=== PATIENT | female | born 1995 | race American Indian/Alaskan Native ===

== ENCOUNTER 2016-05-10 12:06 | Inpatient (IN) | payer MEDICAID ==
[2016-05-10] MEDS ORDERED: BRETHINE IVP PRN ×2 (14:22→16:24)
[2016-05-10] MEDS ORDERED: MINERAL OIL PO PRN (14:22)
[2016-05-10] MEDS ORDERED: POLYCILLIN/NS 2 GM/100 ML 100 ML IV ONE (14:22)
[2016-05-10] MEDS ORDERED: ZOFRAN IV PRN ×2 (14:22→21:27)
[2016-05-10] MEDS ORDERED: XYLOCAINE 2% INFILTRATI ONE (14:22)
[2016-05-10] MEDS ORDERED: ePHEDrine SULFATE IV PRN ×3 (14:22→18:33)
[2016-05-10] MEDS ORDERED: PHENERGAN PO PRN ×2 (14:22→21:27)
[2016-05-10] MEDS ORDERED: BRETHINE SUB-Q PRN ×2 (14:22→16:24)
[2016-05-10 14:45] LABS: Basophils % (Auto) 0.5 % (0.0-1.8); Eosinophils % (Auto) 0.4 % (0.0-4.3); Hematocrit 32.2 % (30.3-42.9); Hemoglobin 10.2 gm/dl (10.1-14.3); Mean Corpuscular HGB Conc 32 % (30-34); Mean Corpuscular Hemoglobin 25 pg (28-32); Mean Corpuscular Volume 78 fl (79-97); Platelet Count 252 K/mm3 (140-440); Red Blood Count 4.11 M/mm3 (3.65-5.03); Red Cell Distribution Width 24.9 % (13.2-15.2); White Blood Count 11.5 K/mm3 (4.5-11.0)
[2016-05-10] MEDS ORDERED: LACTATED RINGERS 1,000 ML IV SCH (15:00)
[2016-05-10] MEDS ORDERED: PITOCin/NS 20 UNIT/1000ML DRIP 1,000 ML IV SCH ×2 (15:00→22:00)
[2016-05-10] MEDS: SUBLIMAZE IV PRN ×2 (15:33→17:28)
--- NOTE | 2016-05-10 16:19 | History and Physical Report ---
History of Present Illness Date of examination: 05/10/16 Date of admission: 05/10/16 14:48 Chief complaint: Painful contractions History of present illness: 21-year-old at 39+ wks in active labor; she is a [facility] patient. care has been unremarkable. From Patient's history, it appears she is GBS negative. 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 denies: gonorrhea, hepatitis B, hepatitis C, herpes, HIV, syphilis, trichomonas Social history: single, full code. denies: smoking, alcohol abuse, prescription drug abuse, IV drug use - Obstetrical History Expected Date of Delivery: 05/16/16 Actual Gestation: 39 Week(s) 1 Day(s) : 1 Para: 0 Medications and Allergies Allergies Allergy/AdvReac Type Severity Reaction Status Date / Time No Known Allergies Allergy Unverified 08/12/15 11:38 Home Medications Medication Instructions Recorded Confirmed Last Taken Type No Known Home Medications [No 08/12/15 08/12/15 Unknown History Reported Home Medications] Active Meds: Active Medications Fentanyl (Sublimaze) 100 mcg IV Q2H PRN PRN Reason: Labor Pain Last Admin: 05/10/16 15:33 Dose: 100 mcg Lactated Ringer's (Lactated Ringers) 1,000 mls @ 125 mls/hr IV DIRECT JOYCE Last Admin: 05/10/16 15:30 Dose: 125 mls/hr Oxytocin/Sodium Chloride (Pitocin/Ns 20 Unit/1000ml Drip) 1,000 mls @ 125 mls/ hr IV DIRECT JOYCE Mineral Oil (Mineral Oil) 30 ml PO QHS PRN PRN Reason: Constipation Ondansetron HCl (Zofran) 4 mg IV Q8H PRN PRN Reason: Nausea And Vomiting Promethazine HCl (Phenergan) 25 mg PO Q6H PRN PRN Reason: Nausea And Vomiting Review of Systems Constitutional: no fever, no chills Cardiovascular: no chest pain, no orthopnea, no edema, no syncope, no lightheadedness, no shortness of breath Respiratory: no hemoptysis, no shortness of breath, no dyspnea on exertion Gastrointestinal: abdominal pain (painful contractions), no nausea, no vomiting , no diarrhea Genitourinary: no vaginal bleeding, no vaginal discharge, no leakage of fluid - Vital Signs Vital signs: Vital Signs Pulse BP Pulse Ox 130 H 116/78 100 05/10/16 12:22 05/10/16 12:22 05/10/16 12:22 Temp Pulse Resp BP Pulse Ox 98.2 F 110 H 16 121/81 100 05/10/16 15:24 05/10/16 15:23 05/10/16 15:24 05/10/16 15:23 05/10/16 12:47 - Physical Exam Cardiovascular: Regular rate, Normal S1, Normal S2 Lungs: Positive: Clear to auscultation, Normal air movement Abdomen: Positive: normal appearance, soft. Negative: distention, tenderness, guarding, rigidity Genitourinary (Female): Positive: normal external genitalia Vulva: both: normal Uterus: Positive: enlarged (EFW ~ 3400) Adnexa: both: normal Extremities: Positive: normal - Obstetrical FHR: category 1 Cervical Dilatation: 4.5 Cervical Effacement Percentage: 100 station: -1 Results Result Diagrams: 05/10/16 14:15 Abnormal lab results 05/10/16 Range/Units 14:15 WBC 11.5 H (4.5-11.0) K/mm3 MCV 78 L (79-97) fl MCH 25 L (28-32) pg RDW 24.9 H (13.2-15.2) % Lymph % (Auto) 12.8 L (13.4-35.0) % [place] % (Auto) 13.1 H (0.0-7.3) % [place] # 1.5 H (0.0-0.8) K/mm3 Seg Neutrophils % 73.2 H (40.0-70.0) % Seg Neutrophils # 8.4 H (1.8-7.7) K/mm3 All other labs normal. Assessment and Plan A: IUP at 39+1 wks in active labour -Cat 1 tracing P: -Admit -Obtain labs -Epidural prn -Expectant mgt -Anticipate - Patient Problems (1) 39 weeks gestation of Current Visit: Yes Status: Acute (2) Active labor at term Current Visit: Yes Status: Acute
[2016-05-10] MEDS ORDERED: PITOCin/NS 30 UNIT/500ML 500 ML IV SCH ×2 (17:00)
[2016-05-10] MEDS ORDERED: NARCAN 2 MG/2 ML IV PRN (18:33)
--- NOTE | 2016-05-10 18:33 | Anesthesia Consultation ---
Anesthesia Consult and Med Hx Date of service: 05/10/16 - Airway Anesthetic Teeth Evaluation: Good ROM Head & Neck: Adequate Mental/Hyoid Distance: Adequate Mallampati Class: Class II Intubation Access Assessment: Possibly Difficult - Pulmonary Exam CTA: Yes - Cardiac Exam Cardiac Exam: RRR - Pre-Operative Health Status ASA Pre-Surgery Classification: ASA2 Proposed Anesthetic Plan: Epidural, Spinal - Pulmonary Hx Asthma: No COPD: No Hx Pneumonia: No - Cardiovascular System Hx Hypertension: No - Central Nervous System Hx Seizures: No Hx Psychiatric Problems: No - Endocrine Hx Renal Disease: No Hx End Stage Renal Disease: No Hx Hypothyroidism: No Hx Hyperthyroidism: No - Hematic Hx Sickle Cell Disease: No - Other Systems Hx Alcohol Use: No - Additional Comments Anesthesia Medical History Comments: IUP in Labor at 39 weeks. Plt 255
[2016-05-10] MEDS ORDERED: fentaNYL-BUPIV 2 MCG/ML-0.125% 100 ML EPIDURAL SCH (19:00)
[2016-05-10] MEDS ORDERED: POLYCILLIN/NS 1 GM/50 ML 50 ML IV SCH (19:00)
--- NOTE | 2016-05-10 20:15 | Progress Note ---
Assessment and Plan A: IUP at 39+1 wks in active labour -Cat 1 tracing P: -Will start pushing actively soon -Anticipate - Patient Problems (1) 39 weeks gestation of Current Visit: Yes Status: Acute (2) Active labor at term Current Visit: Yes Status: Acute Subjective - Subjective Date of service: 05/10/16 Interval history: Patient is fully dilated at 0 station, has meconium on PAD Patient reports: new complaints, loss of fluid, contractions Objective - Vital Signs Vital Signs: Vital Signs - 12hr 05/10/16 05/10/16 05/10/16 12:22 12:27 12:32 Temperature Pulse Rate 130 H 141 H 127 H Pulse Rate [ Right From Monitor] Respiratory Rate Blood Pressure 116/78 Blood Pressure [Right Arm] O2 Sat by Pulse 100 99 100 Oximetry 05/10/16 05/10/16 05/10/16 12:37 12:42 12:47 Temperature Pulse Rate 118 H 140 H 115 H Pulse Rate [ Right From Monitor] Respiratory Rate Blood Pressure Blood Pressure [Right Arm] O2 Sat by Pulse 98 98 100 Oximetry 05/10/16 05/10/16 05/10/16 15:23 15:24 17:19 Temperature 98.2 F Pulse Rate 110 H 112 H Pulse Rate [ Right From Monitor] Respiratory 16 Rate Blood Pressure 121/81 123/76 Blood Pressure [Right Arm] O2 Sat by Pulse Oximetry 05/10/16 05/10/16 05/10/16 18:11 18:15 18:16 Temperature Pulse Rate 117 H 130 H 122 H Pulse Rate [ Right From Monitor] Respiratory Rate Blood Pressure 138/82 Blood Pressure [Right Arm] O2 Sat by Pulse 100 100 Oximetry 05/10/16 05/10/16 05/10/16 18:19 18:21 18:24 Temperature Pulse Rate 114 H 114 H 118 H Pulse Rate [ Right From Monitor] Respiratory Rate Blood Pressure 132/84 118/55 Blood Pressure [Right Arm] O2 Sat by Pulse 99 Oximetry 05/10/16 05/10/16 05/10/16 18:26 18:31 18:32 Temperature Pulse Rate 109 H 117 H 115 H Pulse Rate [ Right From Monitor] Respiratory Rate Blood Pressure 109/53 Blood Pressure [Right Arm] O2 Sat by Pulse 100 100 Oximetry 05/10/16 05/10/16 05/10/16 18:36 18:41 18:46 Temperature Pulse Rate 128 H 124 H 107 H Pulse Rate [ Right From Monitor] Respiratory Rate Blood Pressure Blood Pressure [Right Arm] O2 Sat by Pulse 97 100 100 Oximetry 05/10/16 05/10/16 05/10/16 18:51 18:56 18:57 Temperature Pulse Rate 101 H 97 H 123 H Pulse Rate [ Right From Monitor] Respiratory Rate Blood Pressure 78/48 Blood Pressure [Right Arm] O2 Sat by Pulse 100 100 Oximetry 05/10/16 05/10/16 05/10/16 19:01 19:06 19:11 Temperature Pulse Rate 99 H 117 H 104 H Pulse Rate [ Right From Monitor] Respiratory Rate Blood Pressure 118/63 Blood Pressure [Right Arm] O2 Sat by Pulse 100 100 100 Oximetry 05/10/16 05/10/16 05/10/16 19:15 19:16 19:21 Temperature 98.1 F Pulse Rate 123 H 114 H Pulse Rate [ 106 H Right From Monitor] Respiratory 18 Rate Blood Pressure Blood Pressure 118/63 [Right Arm] O2 Sat by Pulse 100 99 99 Oximetry 05/10/16 05/10/16 05/10/16 19:26 19:31 19:36 Temperature Pulse Rate 105 H 108 H 98 H Pulse Rate [ Right From Monitor] Respiratory Rate Blood Pressure Blood Pressure [Right Arm] O2 Sat by Pulse 100 100 100 Oximetry 05/10/16 05/10/16 05/10/16 19:41 19:46 19:51 Temperature Pulse Rate 100 H 106 H 104 H Pulse Rate [ Right From Monitor] Respiratory Rate Blood Pressure 115/70 Blood Pressure [Right Arm] O2 Sat by Pulse 100 100 100 Oximetry 05/10/16 05/10/16 05/10/16 19:52 19:56 19:58 Temperature Pulse Rate 112 H 104 H 100 H Pulse Rate [ Right From Monitor] Respiratory Rate Blood Pressure Blood Pressure [Right Arm] O2 Sat by Pulse 74 L 100 89 Oximetry 05/10/16 05/10/16 05/10/16 20:00 20:01 20:06 Temperature Pulse Rate 110 H 109 H Pulse Rate [ Right From Monitor] Respiratory 18 Rate Blood Pressure 115/70 Blood Pressure [Right Arm] O2 Sat by Pulse 100 100 Oximetry 05/10/16 20:11 Temperature Pulse Rate 136 H Pulse Rate [ Right From Monitor] Respiratory Rate Blood Pressure 107/64 Blood Pressure [Right Arm] O2 Sat by Pulse 100 Oximetry - Exam FHR: category 1 Cervical Dilatation: 10 station: 0 - Labs Labs: Abnormal Labs 05/10/16 14:15 WBC 11.5 H MCV 78 L MCH 25 L RDW 24.9 H Lymph % (Auto) 12.8 L [place] % (Auto) 13.1 H [place] # 1.5 H Seg Neutrophils % 73.2 H Seg Neutrophils # 8.4 H Laboratory Results - last 24 hr 05/10/16 05/10/16 14:15 15:30 WBC 11.5 H RBC 4.11 Hgb 10.2 Hct 32.2 MCV 78 L MCH 25 L MCHC 32 RDW 24.9 H Plt Count 252 Lymph % (Auto) 12.8 L [place] % (Auto) 13.1 H Eos % (Auto) 0.4 Baso % (Auto) 0.5 Lymph # 1.5 [place] # 1.5 H Eos # 0.0 Baso # 0.1 Seg Neutrophils % 73.2 H Seg Neutrophils # 8.4 H Blood Type B POSITIVE Antibody Screen Negative
[2016-05-10] MEDS ORDERED: MILK OF MAGNESIA PO PRN (21:27)
[2016-05-10] MEDS ORDERED: TYLENOL PO PRN (21:27)
[2016-05-10] MEDS ORDERED: BENADRYL PO PRN (21:27)
[2016-05-10] MEDS ORDERED: LANSINOH TP PRN (21:27)
[2016-05-10] MEDS ORDERED: PHENERGAN PR PRN (21:27)
[2016-05-10] MEDS ORDERED: TUCKS PAD TP PRN (21:27)
[2016-05-10] MEDS ORDERED: DERMOPLAST TP PRN (21:27)
[2016-05-10] MEDS ORDERED: NORCO 5/325 PO PRN (21:27)
[2016-05-10] MEDS ORDERED: DULCOLAX PR PRN (21:27)
--- NOTE | 2016-05-10 21:27 | Procedure Note ---
OB Delivery Note - Delivery Date of Delivery: 05/10/16 Surgeon: EUNICE GRANDE Estimated blood loss: 300cc - Vaginal Delivery presentation: vertex Delivery position: OA Intrapartum events: meconium Delivery induction: none Delivery monitor: external FHT, external uterine Route of delivery: Delivery placenta: spontaneous Delivery cord: 3 umbilical vessels Episiotomy: none Delivery laceration: 1st degree (Non-bleeding and not repaired) Anesthesia: epidural - A at 1 minute: 8 (Del @ 21:18, weight is 7#1 or 3211 gms) at 5 minutes: 9 Gender: Female (Del @)
[2016-05-10] MEDS ORDERED: SODIUM CHLORIDE FLUSH SYRINGE 10 ML IV PRN (22:00)
[2016-05-10] MEDS ORDERED: SENOKOT S PO SCH (22:00)
[2016-05-11] MEDS: MOTRIN PO SCH ×5 (00:19→23:21)
--- NOTE | 2016-05-11 08:29 | Progress Note ---
Assessment and Plan - Patient Problems (1) (normal spontaneous vaginal delivery) Diagnosis Date: 05/11/16 Current Visit: Yes Status: Resolved Plan to address problem: A: S/P - PPD #1 Doing well P: May go home tomorrow Subjective - Subjective Date of service: 05/11/16 Principal diagnosis: s/p - PPD #1 Interval history: Pt is feeling well without complaints. Bleeding improved. Patient reports: appetite normal, voiding normally, pain well controlled, ambulating normally [place]: doing well, bottle feeding Objective - Vital Signs Latest vital signs: Vital Signs Temp Pulse Pulse Resp BP BP Pulse Ox 05/11/16 04:50 98.0 F 88 20 119/74 05/10/16 23:30 97.6 F 103 H 18 132/79 05/10/16 22:43 108 H 100 05/10/16 22:40 107 H 128/81 05/10/16 22:38 107 H 100 05/10/16 22:33 108 H 100 05/10/16 22:29 110 H 84 05/10/16 22:27 106 H 100 05/10/16 22:25 109 H 131/83 05/10/16 22:23 104 H 100 05/10/16 22:20 112 H 18 131/83 100 05/10/16 22:18 106 H 100 05/10/16 22:13 107 H 100 05/10/16 22:10 107 H 128/80 05/10/16 22:08 105 H 100 05/10/16 22:07 102 H 132/79 05/10/16 22:05 97.9 F 107 H 18 132/79 100 05/10/16 22:03 105 H 100 05/10/16 21:58 110 H 100 05/10/16 21:57 114 H 131/72 05/10/16 21:53 115 H 100 05/10/16 21:51 115 H 18 131/72 100 05/10/16 21:48 122 H 100 05/10/16 21:43 116 H 100 05/10/16 21:41 113 H 128/74 05/10/16 21:26 119 H 99 05/10/16 21:21 127 H 99 05/10/16 21:20 98.0 F 114 H 18 128/74 100 05/10/16 21:16 125 H 100 05/10/16 21:11 134 H 132/97 100 05/10/16 21:06 120 H 100 05/10/16 21:01 133 H 100 05/10/16 20:56 124 H 100 05/10/16 20:51 117 H 100 05/10/16 20:46 109 H 100 05/10/16 20:42 122 H 117/67 05/10/16 20:41 116 H 100 05/10/16 20:36 114 H 100 05/10/16 20:31 122 H 100 05/10/16 20:26 130 H 100 05/10/16 20:21 119 H 100 05/10/16 20:16 137 H 100 05/10/16 20:11 136 H 107/64 100 05/10/16 20:06 109 H 100 05/10/16 20:01 110 H 100 05/10/16 20:00 18 115/70 05/10/16 19:58 100 H 89 05/10/16 19:56 104 H 100 05/10/16 19:52 112 H 74 L 05/10/16 19:51 104 H 100 05/10/16 19:46 106 H 100 05/10/16 19:41 100 H 115/70 100 05/10/16 19:36 98 H 100 05/10/16 19:31 108 H 100 05/10/16 19:26 105 H 100 05/10/16 19:21 114 H 99 05/10/16 19:16 123 H 99 05/10/16 19:15 98.1 F 106 H 18 118/63 100 05/10/16 19:11 104 H 100 05/10/16 19:06 117 H 100 05/10/16 19:01 99 H 118/63 100 05/10/16 18:57 123 H 78/48 05/10/16 18:56 97 H 100 05/10/16 18:51 101 H 100 05/10/16 18:46 107 H 100 05/10/16 18:41 124 H 100 05/10/16 18:36 128 H 97 05/10/16 18:32 115 H 109/53 05/10/16 18:31 117 H 100 05/10/16 18:26 109 H 100 05/10/16 18:24 118 H 118/55 05/10/16 18:21 114 H 99 05/10/16 18:19 114 H 132/84 05/10/16 18:16 122 H 100 05/10/16 18:15 130 H 138/82 05/10/16 18:11 117 H 100 05/10/16 17:19 112 H 123/76 05/10/16 15:24 98.2 F 16 05/10/16 15:23 110 H 121/81 05/10/16 12:47 115 H 100 05/10/16 12:42 140 H 98 05/10/16 12:37 118 H 98 05/10/16 12:32 127 H 100 05/10/16 12:27 141 H 99 05/10/16 12:22 130 H 116/78 100 Intake and Output 05/10/16 05/11/16 05/11/16 22:59 06:59 14:59 Intake Total 490 Output Total 650 Balance -160 Intake: IV 250 PITOCin/NS 20 UNIT/1000ML 250 DRIP 1,000 ML @ 125 mls/ hr IV DIRECT JOYCE Rx#: [id number] Oral 240 Output: Urine 650 Void 650 Other: Total, Intake Amount 240 Total, Output Amount 200 Estimated Blood Loss 300 - Exam Breasts: Present: deferred Cardiovascular: Present: Regular rate Lungs: Present: Clear to auscultation Abdomen: Present: normal appearance, soft Uterus: Present: normal, firm, fundal height below umbilicus Extremities: Present: normal - Labs Labs: Abnormal lab results 05/10/16 Range/Units 14:15 WBC 11.5 H (4.5-11.0) K/mm3 MCV 78 L (79-97) fl MCH 25 L (28-32) pg RDW 24.9 H (13.2-15.2) % Lymph % (Auto) 12.8 L (13.4-35.0) % [place] % (Auto) 13.1 H (0.0-7.3) % [place] # 1.5 H (0.0-0.8) K/mm3 Seg Neutrophils % 73.2 H (40.0-70.0) % Seg Neutrophils # 8.4 H (1.8-7.7) K/mm3 Laboratory Tests 05/10/16 05/10/16 14:15 15:30 WBC 11.5 H RBC 4.11 Hgb 10.2 Hct 32.2 MCV 78 L MCH 25 L MCHC 32 RDW 24.9 H Plt Count 252 Lymph % (Auto) 12.8 L [place] % (Auto) 13.1 H Eos % (Auto) 0.4 Baso % (Auto) 0.5 Lymph # 1.5 [place] # 1.5 H Eos # 0.0 Baso # 0.1 Seg Neutrophils % 73.2 H Seg Neutrophils # 8.4 H Blood Type B POSITIVE Antibody Screen Negative
--- NOTE | 2016-05-11 08:30 | Discharge Summary ---
Providers - Providers Date of Admission: 05/10/16 14:48 Date of discharge: 05/12/16 Attending physician: EUNICE GRANDE Primary care physician: EUNICE GRANDE Hospitalization Reason for admission: active labor, IUP at term Delivery: Episiotomy: none Laceration: 1st degree Other procedures: none complications: none Discharge diagnosis: IUP at term delivered [place] baby: female Hospital course: Unremarkable. Condition at discharge: Good Disposition: DISCHARGED TO HOME OR SELFCARE - Discharge Diagnoses (1) (normal spontaneous vaginal delivery) Status: Resolved Plan - Discharge Medications Prescriptions: HYDROcodone/APAP 5-325 [[place] 5/325] 1 each PO Q6HR PRN #14 tablet PRN Reason: Pain Ibuprofen [Motrin 600 MG tab] 600 mg PO Q8H PRN #30 tablet PRN Reason: Pain Multivitamin with Iron [Multivitamins with Iron] 1 each PO DAILY #30 tablet - Provider Discharge Summary Activity: routine, no sex for 6 weeks, no heavy lifting 4 weeks, no strenuous exercise Diet: routine Instructions: routine Additional instructions: [] Smoking cessation referral if applicable(refer to patient education folder for contact #) [] Refer to [facility] Booklet Call your doctor immediately for: * Fever > 100.5 * Heavy vaginal bleeding ( >1 pad per hour) * Severe persistent headache * Shortness of breath * Reddened, hot, painful area to leg or breast * Drainage or odor from incision. * Keep incision clean and dry at all times and follow doctor's instructions regarding bathing/showering - Follow up plan Follow up: EUNICE GRANDE MD [Primary Care Provider] - 6 Weeks
[2016-05-11 10:04] LABS: Hematocrit 27.1 % (30.3-42.9); Hemoglobin 8.6 gm/dl (10.1-14.3)
[2016-05-11] MEDS: PRENATAL VITAMIN PO SCH (10:51)
[2016-05-11] MEDS: COLACE PO SCH ×2 (10:51→21:30)
[2016-05-11] MEDS: FEOSOL PO SCH ×2 (10:51→21:30)
--- NOTE | 2016-05-11 11:53 | Progress Note ---
Subjective Date of service: 05/11/16 Principal diagnosis: s/p - PPD #1 Interval history: 1st day after normal vaginal delivery Patient is in the bed, relatively comfortable. Pain is well controlled with pain meds. Ambulated well. No residual neurological deficit. No anesthesia complications Objective - Constitutional Vitals: Vital Signs - 12hr 05/11/16 05/11/16 04:50 08:38 Temperature 98.0 F 98.6 F Pulse Rate [ 88 86 Right From Monitor] Respiratory 20 18 Rate Blood Pressure 119/74 126/77 [Right Arm] - Labs CBC & Chem 7: 05/11/16 09:35 Labs: Abnormal lab results 05/10/16 05/11/16 Range/Units 14:15 09:35 WBC 11.5 H (4.5-11.0) K/mm3 Hgb 8.6 L (10.1-14.3) gm/dl Hct 27.1 L (30.3-42.9) % MCV 78 L (79-97) fl MCH 25 L (28-32) pg RDW 24.9 H (13.2-15.2) % Lymph % (Auto) 12.8 L (13.4-35.0) % [place] % (Auto) 13.1 H (0.0-7.3) % [place] # 1.5 H (0.0-0.8) K/mm3 Seg Neutrophils % 73.2 H (40.0-70.0) % Seg Neutrophils # 8.4 H (1.8-7.7) K/mm3
[2016-05-12] MEDS: MOTRIN PO SCH ×2 (05:12→13:07)
[2016-05-12 12:37] VITALS: BP 118/88
[2016-05-12] MEDS: PRENATAL VITAMIN PO SCH (13:07)
[2016-05-12] MEDS: COLACE PO SCH (13:07)
[2016-05-12] MEDS: FEOSOL PO SCH (13:07)
== END 2016-05-12 15:20 | disposition home or self-care (01) | DRG 775 ==
LOC: TRG 12:06 → LD 14:48 → TRG 14:48 → OB 23:15
PROVIDERS: ADMIT Obstetrics & Gynecology Gynecology; ATTEND Obstetrics & Gynecology Gynecology
PROC: 10E0XZZ Delivery of Products of Conception, External Approach (ICD-10-PCS; principal; 2016-05-10)
PROC: 00HU33Z Insertion of Infusion Device into Spinal Canal, Percutaneous Approach (ICD-10-PCS; 2016-05-10)
PROC: 3E0R3CZ (ICD-10-PCS; 2016-05-10)
DX: O77.0 Labor and delivery complicated by meconium in amniotic fluid (principal); O70.0 First degree perineal laceration during delivery; Z3A.39 39 weeks gestation of pregnancy; Z37.0 Single live birth
CPT/HCPCS: 36415; 85014; 85018; 85025; 86850; 86900; 86901; J0290; J2590; J3010; J7120

== ENCOUNTER 2018-08-25 23:42 | Inpatient (IN) | payer MEDICAID ==
[2018-08-26] MEDS ORDERED: LACTATED RINGERS 1,000 ML IV ONE ×2 (01:32→02:24)
[2018-08-26] MEDS ORDERED: LACTATED RINGERS 1,000 ML ONE (01:35)
[2018-08-26 02:12] LABS: Bilirubin,Urine NEG (Negative); Blood,Urine NEG (Negative); Color,Urine Yellow (Yellow); Protein,Urine <15 mg/dL mg/dL (Negative)
[2018-08-26] MEDS: BRETHINE SUB-Q SCH ×3 (02:20→03:28)
--- NOTE | 2018-08-26 04:08 | Event Note ---
Date: 08/26/18 23 y.o. IUP at 33w5d presents to triage with c/o regular contractions after intercourse at 2100 yesterday evening. Patient denies any contractions or complaints prior to intercourse. She denies any vaginal bleeding, LOF. +GFM. Patient reports drinking minimal water within last 24 hours. 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 Terb series given per protocol. LR liter bolus is complete at this time. No activity on TOCO at current, abdomen palpates soft, non-tender all over, FHTs remain category 1. Patient reports feeling much better, rates pain 0/10 now and denies any contractions, VB, LOF at this time. RN to recheck SVE at this time. Will plan to initiate steroid series for lung maturing in case of delivery. Patient will stay for observation, will repeat NST, SVE, give first dose of BMZ at approx 0700. Patient will return to [facility] for 2nd dose 24 hrs later. Patient scheduled for f/u ob appt in office with SHONDA Teague on September 27 at 3:15 for f/u. Patient aware of plan and agrees to proceed. Pt understands the importance of returning 24 hours after 1st BMZ injection to complete series and to call or return with any labor s/s, VB, LOF, DFM.
[2018-08-26] MEDS: CELESTONE SOLUSPAN IM SCH (08:08)
[2018-08-26] MEDS ORDERED: TYLENOL PO PRN (08:40)
[2018-08-26] MEDS ORDERED: MAGNESIUM SULFATE 4GM/100ML 4 GM/100 ML BAG IV ONE (08:43)
[2018-08-26] MEDS ORDERED: COLACE PO PRN (09:00)
[2018-08-26 09:44] LABS: Basophils % (Auto) 0.4 % (0.0-1.8); Eosinophils # (Auto) 0.1 K/mm3 (0.0-0.4); Eosinophils % (Auto) 1.4 % (0.0-4.3); Hematocrit 20.1 % (30.3-42.9); Hemoglobin 6.4 gm/dl (10.1-14.3); Lymphocytes # (Auto) 1.1 K/mm3 (1.2-5.4); Lymphocytes % (Auto) 10.7 % (13.4-35.0); Mean Corpuscular HGB Conc 32 % (30-34); Mean Corpuscular Volume 71 fl (79-97); Monocytes # (Auto) 0.6 K/mm3 (0.0-0.8); Monocytes % (Auto) 6.5 % (0.0-7.3); Platelet Count 220 K/mm3 (140-440); Red Blood Count 2.82 M/mm3 (3.65-5.03); Red Cell Distribution Width 18.5 % (13.2-15.2)
[2018-08-26] MEDS ORDERED: PRENATAL VITAMIN PO SCH (10:00)
[2018-08-26] MEDS: LACTATED RINGERS 1,000 ML IV SCH ×2 (10:00→22:42)
[2018-08-26] MEDS: MAGNESIUM SULFATE 40GM/1000ML 40 GM/1,000 ML BAG IV SCH (10:35)
--- NOTE | 2018-08-26 11:43 | History and Physical Report ---
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 denies: smoking, alcohol abuse, prescription drug abuse - Obstetrical History Expected Date of Delivery: 10/09/18 Actual Gestation: 33 Week(s) 5 Day(s) : 2 Para: 1 Medications and Allergies Allergies Allergy/AdvReac Type Severity Reaction Status Date / Time No Known Allergies Allergy Verified 08/26/18 01:55 Home Medications Medication Instructions Recorded Confirmed Last Taken Type Vit-Fe Fumar-FA [ 1 tab PO QDAY 05/11/16 08/26/18 08/25/18 History Vitamin] Docusate Sodium [Colace] 100 mg PO BID PRN 08/26/18 08/26/18 08/25/18 History Ferrous Sulfate [Iron 325 MG] 1 tab PO DAILY 08/26/18 08/26/18 08/25/18 History Active Meds: Active Medications Acetaminophen (Tylenol) 650 mg PO Q4H PRN PRN Reason: Pain MILD(1-3)/Fever >100.5/AVALOS Betamethasone Acet/Betameth SodPhos ([place] Soluspan) 12 mg IM Q24H JOYCE Stop: 08/27/18 07:31 Last Admin: 08/26/18 08:08 Dose: 12 mg Documented by: Docusate Sodium (Colace) 100 mg PO Q12H PRN PRN Reason: Constipation Lactated Ringer's (Lactated Ringers) 1,000 mls @ 75 mls/hr IV DIRECT JOYCE Last Admin: 08/26/18 10:00 Dose: 75 mls/hr Documented by: Magnesium Sulfate (Magnesium Sulfate 40gm/1000ml) 40 gm in 1,000 mls @ 50 mls/hr IV DIRECT JOYCE Last Admin: 08/26/18 10:35 Dose: 2 gm/hr, 50 mls/hr Documented by: Multivitamins/Iron/Calcium ( Vitamin) 1 each PO QDAY JOYCE Terbutaline Sulfate (Brethine) 0.25 mg SUB-Q Q20MIN JOYCE Stop: 08/28/18 03:01 Last Admin: 08/26/18 03:28 Dose: 0.25 mg Documented by: Review of Systems All systems: negative Genitourinary: contractions - Vital Signs Vital signs: Vital Signs Temp Pulse Resp BP 99.1 F 88 18 124/69 08/26/18 01:00 08/26/18 01:00 08/26/18 01:00 08/26/18 01:00 Temp Pulse Resp BP Pulse Ox 99.1 F 108 H 18 79/45 08/26/18 01:00 08/26/18 07:18 08/26/18 01:00 08/26/18 07:18 - Physical Exam Breasts: Positive: normal Cardiovascular: Regular rate, Normal S1, Normal S2 Lungs: Positive: Clear to auscultation Abdomen: Positive: normal appearance, soft, normal bowel sounds. Negative: distention, tenderness Genitourinary (Female): Positive: normal external genitalia, normal perenium Vulva: both: normal Vagina: Positive: normal moisture. Negative: discharge Cervix: Negative: lesion, discharge Uterus: Positive: normal size, normal contour Adnexa: both: normal Anus/Rectum: Positive: normal perianal skin, heme negative. Negative: rectal mass, hemorrhoids Extremities: Deep Tendon Reflex Grade: Normal +2 - Obstetrical FHR: auscultation normal, category 1 Uterine Contraction Monitor Mode: Palpation (mild) Uterine Contraction Pattern: Irregular Uterine Tone Measurement Phase: Contraction Uterine Contraction Intensity: Mild Results Result Diagrams: 08/26/18 09:28 Abnormal lab results 08/26/18 08/26/18 Range/Units 01:00 09:28 RBC 2.82 L (3.65-5.03) M/mm3 Hgb 6.4 L (10.1-14.3) gm/dl Hct 20.1 L (30.3-42.9) % MCV 71 L (79-97) fl MCH 23 L (28-32) pg RDW 18.5 H (13.2-15.2) % Lymph % (Auto) 10.7 L (13.4-35.0) % Lymph # 1.1 L (1.2-5.4) K/mm3 Seg Neutrophils % 81.0 H (40.0-70.0) % Seg Neutrophils # 8.1 H (1.8-7.7) K/mm3 Urine WBC (Auto) 8.0 H (0.0-6.0) /HPF All other labs normal. Assessment and Plan First dose of BMZ given this morning as ordered. Patient placed on monitor for NST, irritability noted. Patient denies any pain, contractions, or complaints. SVE remains unchanged 60/-2, posterior, vertex. BOW intact, no VB noted. Patient reports +FM. Category 1 tracing noted at this time. Consult with Dr. Graves, will admit for magnesium until 24 hrs post 2nd BMZ injection. RN aware of new orders. Patient updated on POC and agrees to proceed. - Patient Problems (1) 33 weeks gestation of Current Visit: Yes Status: Acute (2) labor in third trimester Current Visit: Yes Status: Acute Qualifiers: labor delivery status: without delivery Qualified Code(s): O60.03 - labor without delivery, third trimester
--- NOTE | 2018-08-26 13:26 | Progress Note ---
Assessment and Plan - Patient Problems (1) 33 weeks gestation of Current Visit: Yes Status: Acute (2) labor in third trimester Current Visit: Yes Status: Acute Qualifiers: labor delivery status: without delivery Qualified Code(s): O60.03 - labor without delivery, third trimester Plan to address problem: steroid therapy MgSO4 therapy until 48hours after 2nd steroid dose GBS Family in room. Plan of care and risks/benefits explained, questions encouraged and answered. She voiced understanding and agrees with plan of care Subjective - Subjective Date of service: 08/26/18 Principal diagnosis: IUP@ 33 5/7, PTL Interval history: Resting in bed, no complaints Patient reports: movement normal, no new complaints, no loss of fluid, no vaginal bleeding, no contractions Objective - Vital Signs Vital Signs: Vital Signs - 12hr 08/26/18 08/26/18 08/26/18 01:50 02:19 02:50 Pulse Rate 100 H 106 H 111 H Blood Pressure 115/73 118/67 108/58 O2 Sat by Pulse Oximetry 08/26/18 08/26/18 08/26/18 03:20 03:50 07:18 Pulse Rate 117 H 125 H 108 H Blood Pressure 96/47 95/53 79/45 O2 Sat by Pulse Oximetry 08/26/18 08/26/18 08/26/18 13:10 13:11 13:15 Pulse Rate 111 H 105 H 106 H Blood Pressure 111/63 O2 Sat by Pulse 99 99 Oximetry - Exam Breasts: deferred Lungs: Clear to auscultation, Normal air movement Abdomen: Present: normal appearance, soft. Absent: tenderness Uterus: Present: fundal height above umbilicus. Absent: tenderness FHR: category 1 Uterine Contraction Monitor Mode: External Uterine Contraction Pattern: Irregular Extremities: normal - Labs Labs: Abnormal Labs 08/26/18 08/26/18 01:00 09:28 RBC 2.82 L Hgb 6.4 L Hct 20.1 L MCV 71 L MCH 23 L RDW 18.5 H Lymph % (Auto) 10.7 L Lymph # 1.1 L Seg Neutrophils % 81.0 H Seg Neutrophils # 8.1 H Urine WBC (Auto) 8.0 H Laboratory Results - last 24 hr 08/26/18 08/26/18 08/26/18 01:00 09:28 09:28 WBC 10.0 RBC 2.82 L Hgb 6.4 L Hct 20.1 L MCV 71 L MCH 23 L MCHC 32 RDW 18.5 H Plt Count 220 Lymph % (Auto) 10.7 L [place] % (Auto) 6.5 Eos % (Auto) 1.4 Baso % (Auto) 0.4 Lymph # 1.1 L [place] # 0.6 Eos # 0.1 Baso # 0.0 Seg Neutrophils % 81.0 H Seg Neutrophils # 8.1 H Urine Color Yellow Urine Turbidity Clear Urine pH 7.0 Ur Specific [place] 1.012 Urine Protein <15 mg/dl Urine Glucose (UA) Neg Urine Ketones Neg Urine Blood Neg Urine Nitrite Neg Urine Bilirubin Neg Urine Urobilinogen 4.0 Ur Leukocyte Esterase Sm Urine WBC (Auto) 8.0 H Urine RBC (Auto) 4.0 U Epithel Cells (Auto) 1.0 Blood Type B POSITIVE Antibody Screen Negative
[2018-08-26] MEDS ORDERED: FEOSOL PO SCH (14:00)
--- NOTE | 2018-08-27 05:46 | Progress Note ---
Assessment and Plan - Patient Problems (1) Anemia Onset Date: Unknown Current Visit: Yes Status: Chronic Qualifiers: Anemia type: iron deficiency Iron deficiency anemia type: unspecified iron deficiency Qualified Code(s): D50.9 - Iron deficiency anemia, unspecified Plan to address problem: Adm H&H 10/18 FESO4 po BID started along with Colace Pt does not c/o s/sx of anemia (2) labor in third trimester Onset Date: ~08/27/18 Current Visit: Yes Status: Acute Qualifiers: labor delivery status: without delivery Qualified Code(s): O60.03 - labor without delivery, third trimester Plan to address problem: Plan to complete BMZ this AM. Will continue MGSO4. Pt requesting to go home today if possible. Will consult with . VS BP 92/51, pulse 96 Lungs clear Abdomen soft uterine irritability noted Pt denies ctx Subjective - Subjective Date of service: 08/27/18 (BMZ due 0800 2nd dose) Principal diagnosis: IUP@ 33 10/05, PTL; anemia Patient reports: movement normal, no new complaints, no loss of fluid, no vaginal bleeding, no contractions Objective - Vital Signs Vital Signs: Vital Signs - 12hr 08/26/18 08/26/18 08/26/18 17:45 17:50 17:55 Temperature Pulse Rate 104 H 110 H 104 H Respiratory Rate Blood Pressure O2 Sat by Pulse 100 100 100 Oximetry 08/26/18 08/26/18 08/26/18 18:00 18:05 18:10 Temperature Pulse Rate 102 H 108 H 105 H Respiratory Rate Blood Pressure O2 Sat by Pulse 100 100 100 Oximetry 08/26/18 08/26/18 08/26/18 18:15 18:20 18:25 Temperature Pulse Rate 106 H 119 H 109 H Respiratory Rate Blood Pressure O2 Sat by Pulse 100 100 100 Oximetry 08/26/18 08/26/18 08/26/18 18:30 18:35 18:40 Temperature Pulse Rate 105 H 105 H 107 H Respiratory Rate Blood Pressure O2 Sat by Pulse 100 100 100 Oximetry 08/26/18 08/26/18 08/26/18 18:45 18:50 18:55 Temperature Pulse Rate 111 H 101 H 107 H Respiratory Rate Blood Pressure O2 Sat by Pulse 100 100 100 Oximetry 08/26/18 08/26/18 08/26/18 19:00 19:05 19:10 Temperature Pulse Rate 112 H 102 H 112 H Respiratory Rate Blood Pressure 89/50 O2 Sat by Pulse 100 100 100 Oximetry 08/26/18 08/26/18 08/26/18 19:15 19:20 19:25 Temperature Pulse Rate 105 H 114 H 100 H Respiratory Rate Blood Pressure O2 Sat by Pulse 100 100 100 Oximetry 08/26/18 08/26/18 08/26/18 19:30 19:35 19:40 Temperature 97.6 F Pulse Rate 96 H 102 H 99 H Respiratory 20 Rate Blood Pressure O2 Sat by Pulse 100 100 98 Oximetry 08/26/18 08/26/18 08/26/18 19:45 19:50 19:55 Temperature Pulse Rate 102 H 100 H 101 H Respiratory Rate Blood Pressure O2 Sat by Pulse 99 99 99 Oximetry 08/26/18 08/26/18 08/26/18 20:00 20:05 20:10 Temperature Pulse Rate 105 H 105 H 103 H Respiratory Rate Blood Pressure 101/58 O2 Sat by Pulse 100 100 100 Oximetry 08/26/18 08/26/18 08/26/18 20:15 20:20 20:25 Temperature Pulse Rate 101 H 94 H 96 H Respiratory Rate Blood Pressure O2 Sat by Pulse 100 100 100 Oximetry 08/26/18 08/26/18 08/26/18 20:30 20:35 20:40 Temperature Pulse Rate 101 H 99 H 100 H Respiratory Rate Blood Pressure O2 Sat by Pulse 99 99 99 Oximetry 08/26/18 08/26/18 08/26/18 20:45 20:50 20:55 Temperature Pulse Rate 101 H 102 H 106 H Respiratory Rate Blood Pressure O2 Sat by Pulse 99 99 100 Oximetry 08/26/18 08/26/18 08/26/18 21:00 21:05 21:10 Temperature Pulse Rate 100 H 101 H 108 H Respiratory Rate Blood Pressure O2 Sat by Pulse 99 100 100 Oximetry 08/26/18 08/26/18 08/26/18 21:15 21:20 21:25 Temperature Pulse Rate 101 H 99 H 104 H Respiratory Rate Blood Pressure O2 Sat by Pulse 100 100 100 Oximetry 08/26/18 08/26/18 08/26/18 21:30 21:35 21:40 Temperature Pulse Rate 105 H 104 H 106 H Respiratory Rate Blood Pressure O2 Sat by Pulse 100 100 100 Oximetry 08/26/18 08/26/18 08/26/18 21:45 21:50 21:55 Temperature Pulse Rate 113 H 108 H 111 H Respiratory Rate Blood Pressure O2 Sat by Pulse 100 100 100 Oximetry 08/26/18 08/26/18 08/26/18 22:00 22:05 22:10 Temperature Pulse Rate 109 H 116 H 108 H Respiratory Rate Blood Pressure O2 Sat by Pulse 100 100 100 Oximetry 08/26/18 08/26/18 08/26/18 22:15 22:20 22:25 Temperature Pulse Rate 108 H 110 H 107 H Respiratory Rate Blood Pressure O2 Sat by Pulse 100 100 100 Oximetry 08/26/18 08/26/18 08/26/18 22:30 22:35 22:40 Temperature Pulse Rate 117 H 106 H 120 H Respiratory Rate Blood Pressure O2 Sat by Pulse 100 100 100 Oximetry 08/26/18 08/26/18 08/26/18 22:43 22:45 22:50 Temperature Pulse Rate 108 H 106 H 113 H Respiratory Rate Blood Pressure 98/55 O2 Sat by Pulse 100 100 Oximetry 08/26/18 08/26/18 08/26/18 22:55 23:00 23:05 Temperature Pulse Rate 109 H 113 H 110 H Respiratory Rate Blood Pressure O2 Sat by Pulse 100 100 100 Oximetry 08/26/18 08/26/18 08/26/18 23:10 23:15 23:20 Temperature Pulse Rate 111 H 112 H 106 H Respiratory Rate Blood Pressure O2 Sat by Pulse 100 100 100 Oximetry 08/26/18 08/26/18 08/26/18 23:25 23:30 23:35 Temperature Pulse Rate 111 H 112 H 101 H Respiratory Rate Blood Pressure O2 Sat by Pulse 100 100 100 Oximetry 08/26/18 08/26/18 08/26/18 23:40 23:43 23:45 Temperature Pulse Rate 101 H 98 H 103 H Respiratory Rate Blood Pressure 86/54 O2 Sat by Pulse 100 100 Oximetry 08/26/18 08/26/18 08/27/18 23:50 23:55 00:00 Temperature Pulse Rate 108 H 115 H 101 H Respiratory Rate Blood Pressure O2 Sat by Pulse 100 100 100 Oximetry 08/27/18 08/27/18 08/27/18 00:05 00:10 00:15 Temperature 97.6 F Pulse Rate 100 H 113 H 99 H Respiratory 20 Rate Blood Pressure O2 Sat by Pulse 100 100 100 Oximetry 08/27/18 08/27/18 08/27/18 00:20 00:25 00:30 Temperature Pulse Rate 102 H 101 H 112 H Respiratory Rate Blood Pressure O2 Sat by Pulse 100 100 100 Oximetry 08/27/18 08/27/18 08/27/18 00:35 00:40 00:43 Temperature Pulse Rate 97 H 104 H 94 H Respiratory Rate Blood Pressure 99/51 O2 Sat by Pulse 100 100 Oximetry 08/27/18 08/27/18 08/27/18 00:45 00:50 00:55 Temperature Pulse Rate 113 H 103 H 93 H Respiratory Rate Blood Pressure O2 Sat by Pulse 100 100 99 Oximetry 08/27/18 08/27/18 08/27/18 01:00 01:05 01:10 Temperature Pulse Rate 100 H 95 H 92 H Respiratory Rate Blood Pressure O2 Sat by Pulse 99 99 99 Oximetry 08/27/18 08/27/18 08/27/18 01:15 01:20 01:25 Temperature Pulse Rate 94 H 95 H 95 H Respiratory Rate Blood Pressure O2 Sat by Pulse 98 99 98 Oximetry 08/27/18 08/27/18 08/27/18 01:30 01:35 01:40 Temperature Pulse Rate 99 H 99 H 99 H Respiratory Rate Blood Pressure O2 Sat by Pulse 99 99 99 Oximetry 08/27/18 08/27/18 08/27/18 01:43 01:45 01:50 Temperature Pulse Rate 106 H 99 H 99 H Respiratory Rate Blood Pressure 82/47 O2 Sat by Pulse 99 99 Oximetry 08/27/18 08/27/18 08/27/18 01:55 02:00 02:05 Temperature Pulse Rate 100 H 101 H 100 H Respiratory Rate Blood Pressure O2 Sat by Pulse 99 99 99 Oximetry 08/27/18 08/27/18 08/27/18 02:10 02:15 02:20 Temperature Pulse Rate 102 H 100 H 101 H Respiratory Rate Blood Pressure O2 Sat by Pulse 99 99 99 Oximetry 08/27/18 08/27/18 08/27/18 02:25 02:30 02:35 Temperature Pulse Rate 103 H 104 H 104 H Respiratory Rate Blood Pressure O2 Sat by Pulse 99 99 99 Oximetry 08/27/18 08/27/18 08/27/18 02:40 02:43 02:45 Temperature Pulse Rate 106 H 108 H 114 H Respiratory Rate Blood Pressure 90/50 O2 Sat by Pulse 99 93 Oximetry 08/27/18 08/27/18 08/27/18 02:50 02:55 03:00 Temperature Pulse Rate 108 H 106 H 104 H Respiratory Rate Blood Pressure O2 Sat by Pulse 99 99 99 Oximetry 08/27/18 08/27/18 08/27/18 03:05 03:10 03:15 Temperature Pulse Rate 103 H 101 H 107 H Respiratory Rate Blood Pressure O2 Sat by Pulse 99 99 99 Oximetry 08/27/18 08/27/18 08/27/18 03:20 03:25 03:30 Temperature Pulse Rate 100 H 103 H 99 H Respiratory Rate Blood Pressure O2 Sat by Pulse 99 99 99 Oximetry 08/27/18 08/27/18 08/27/18 03:35 03:40 03:43 Temperature Pulse Rate 107 H 101 H 100 H Respiratory Rate Blood Pressure 89/51 O2 Sat by Pulse 99 98 Oximetry 08/27/18 08/27/18 08/27/18 03:45 03:50 03:55 Temperature Pulse Rate 99 H 99 H 101 H Respiratory Rate Blood Pressure O2 Sat by Pulse 99 98 99 Oximetry 08/27/18 08/27/18 08/27/18 04:00 04:01 04:05 Temperature 97.6 F Pulse Rate 100 H 99 H Respiratory 18 Rate Blood Pressure O2 Sat by Pulse 99 99 Oximetry 08/27/18 08/27/18 08/27/18 04:10 04:15 04:20 Temperature Pulse Rate 103 H 97 H 100 H Respiratory Rate Blood Pressure O2 Sat by Pulse 99 98 99 Oximetry 08/27/18 08/27/18 08/27/18 04:25 04:30 04:32 Temperature Pulse Rate 101 H 111 H 100 H Respiratory Rate Blood Pressure 89/50 O2 Sat by Pulse 99 99 Oximetry 08/27/18 08/27/18 08/27/18 04:35 04:40 04:43 Temperature Pulse Rate 104 H 103 H 100 H Respiratory Rate Blood Pressure 92/51 O2 Sat by Pulse 99 100 Oximetry 08/27/18 08/27/18 08/27/18 04:45 04:50 04:55 Temperature Pulse Rate 104 H 103 H 104 H Respiratory Rate Blood Pressure O2 Sat by Pulse 99 98 98 Oximetry 08/27/18 08/27/18 08/27/18 05:00 05:05 05:10 Temperature Pulse Rate 100 H 110 H 97 H Respiratory Rate Blood Pressure O2 Sat by Pulse 98 99 98 Oximetry 08/27/18 08/27/18 08/27/18 05:15 05:20 05:25 Temperature Pulse Rate 98 H 97 H 99 H Respiratory Rate Blood Pressure O2 Sat by Pulse 98 98 98 Oximetry 08/27/18 08/27/18 08/27/18 05:30 05:35 05:40 Temperature Pulse Rate 97 H 96 H 98 H Respiratory Rate Blood Pressure O2 Sat by Pulse 98 98 100 Oximetry - Exam Breasts: deferred Cardiovascular: Regular rate Lungs: Normal air movement Abdomen: Present: normal appearance, soft. Absent: distention, tenderness Uterus: Present: normal FHR: auscultation normal, category 1 Uterine Contraction Monitor Mode: External Uterine Contraction Pattern: Irregular Uterine Contraction Intensity: Mild Extremities: normal Deep Tendon Reflex Grade: Normal +2 - Labs Labs: Abnormal Labs 08/26/18 08/26/18 08/26/18 01:00 09:28 13:22 RBC 2.82 L Hgb 6.4 L Hct 20.1 L MCV 71 L MCH 23 L RDW 18.5 H Lymph % (Auto) 10.7 L Lymph # 1.1 L Seg Neutrophils % 81.0 H Seg Neutrophils # 8.1 H Magnesium 4.70 H Urine WBC (Auto) 8.0 H 08/26/18 08/27/18 19:11 00:11 RBC Hgb Hct MCV MCH RDW Lymph % (Auto) Lymph # Seg Neutrophils % Seg Neutrophils # [place] 5.50 H 4.60 H Urine WBC (Auto) Laboratory Results - last 24 hr 08/26/18 08/26/18 08/26/18 09:28 09:28 13:22 WBC 10.0 RBC 2.82 L Hgb 6.4 L Hct 20.1 L MCV 71 L MCH 23 L MCHC 32 RDW 18.5 H Plt Count 220 Lymph % (Auto) 10.7 L [place] % (Auto) 6.5 Eos % (Auto) 1.4 Baso % (Auto) 0.4 Lymph # 1.1 L [place] # 0.6 Eos # 0.1 Baso # 0.0 Seg Neutrophils % 81.0 H Seg Neutrophils # 8.1 H Magnesium 4.70 H Blood Type B POSITIVE Antibody Screen Negative 08/26/18 08/27/18 19:11 00:11 WBC RBC Hgb Hct MCV MCH MCHC RDW Plt Count Lymph % (Auto) [place] % (Auto) Eos % (Auto) Baso % (Auto) Lymph # [place] # Eos # Baso # Seg Neutrophils % Seg Neutrophils # Magn[place] 5.50 H 4.60 H Blood Type Antibody Screen
[2018-08-27] MEDS: MAGNESIUM SULFATE 40GM/1000ML 40 GM/1,000 ML BAG IV SCH (07:30)
[2018-08-27] MEDS: CELESTONE SOLUSPAN IM SCH (08:17)
[2018-08-27] MEDS ORDERED: PRENATAL VITAMIN PO SCH (10:00)
[2018-08-27] MEDS: LACTATED RINGERS 1,000 ML IV SCH (10:42)
[2018-08-27 12:45] VITALS: BP 99/54
--- NOTE | 2018-08-27 13:27 | Event Note ---
Date: 08/27/18 Pt desires d/c home. No contractions noted on monitoring and bmz was completed this am at 0812. Will d/c mag at this time and evaluate for the next few hours and then if still stable will d/c home at pt will be 34.0 weeks on tomorrow. Stressed to pt bedrest, pelvic rest, and keeping follow up apt. Pt expressed understanding and questions were addressed and answered.
--- NOTE | 2018-08-27 16:37 | Discharge Summary ---
Providers - Providers Date of Admission: 08/26/18 11:30 Date of discharge: 08/27/18 (pt agrees with d/c) Attending physician: GLADYS FREIRE Primary care physician: GLADYS FREIRE Hospitalization Reason for admission: IUP - , labor Delivery: other (BMJZ X 2 doses MGSO4 X 36hrs) Discharge diagnosis: other (undelivered no further dilatation) Hospital course: PTL precautions and w/u BMZ X 2 doses MGSO4 for neuroprotection Pt w/o complaint Anxious to go home SVE 2,thick, high Pt given strict instruct ions of pelvic rest, nothing in the vagina, avoid constipation, hydration. Call with any ctx Keep OB appt scheduled for tomorrow. All questions addressed. Condition at discharge: Good Disposition: DC-01 TO HOME OR SELFCARE - Discharge Diagnoses (1) Anemia Status: Chronic Qualifiers: Anemia type: iron deficiency Iron deficiency anemia type: unspecified iron deficiency Qualified Code(s): D50.9 - Iron deficiency anemia, unspecified Comment: cont po iron; foods high in iron (2) labor in third trimester Status: Acute Qualifiers: labor delivery status: without delivery Qualified Code(s): O60.03 - labor without delivery, third trimester Comment: keep appt as scheduled Plan - Provider Discharge Summary Activity: routine, no sex for 6 weeks, no heavy lifting 4 weeks, no strenuous exercise Diet: routine Instructions: routine Additional instructions: [] Smoking cessation referral if applicable(refer to patient education folder for contact #) [] Refer to [facility] Booklet Call your doctor immediately for: * Fever > 100.5 * Heavy vaginal bleeding ( >1 pad per hour) * Severe persistent headache * Shortness of breath * Reddened, hot, painful area to leg or breast * Drainage or odor from incision. * Keep incision clean and dry at all times and follow doctor's instructions regarding bathing/showering - Follow up plan Follow up: GLADYS FREIRE MD [Primary Care Provider] - 08/28/18 (keep appt as scheduled for tomorrow. given strict instructions of pelvic rest, nothing in the vagina, avoid constipation, hydration. Call with any contractions Keep appt scheduled for tomorrow. All questions addressed.)
== END 2018-08-27 15:30 | disposition home or self-care (01) | DRG 781 ==
LOC: TRG 23:42 → LD 08-26 04:50 → TRG 08-26 11:30
PROVIDERS: ADMIT Obstetrics & Gynecology; ATTEND Obstetrics & Gynecology
DX: O99.013 Anemia complicating pregnancy, third trimester (principal); O60.03 Preterm labor without delivery, third trimester; D50.9 Iron deficiency anemia, unspecified; Z3A.33 33 weeks gestation of pregnancy; Z79.899 Other long term (current) drug therapy
CPT/HCPCS: 36415; 81001; 83735; 85025; 86850; 86900; 86901; G0378; J0702; J3105; J3475; J7120

== ENCOUNTER 2018-10-05 07:11 | Outpatient (CLI) | payer MEDICAID ==
[2018-10-05 09:41] VITALS: BP 112/69
== END 2018-10-05 08:50 | disposition home or self-care (01) ==
LOC: TRG 07:11
PROVIDERS: ATTEND Obstetrics & Gynecology
DX: O47.1 False labor at or after 37 completed weeks of gestation (principal); Z3A.39 39 weeks gestation of pregnancy
CPT/HCPCS: 59025

== ENCOUNTER 2018-10-05 23:55 | Inpatient (IN) | payer MEDICAID ==
[2018-10-06] MEDS ORDERED: PITOCin/NS 20 UNIT/1000ML DRIP 20,000 MILLIUNITS/1,000 ML BAG IV ONE (00:08)
[2018-10-06] MEDS ORDERED: LACTATED RINGERS 1,000 ML ONE (00:08)
[2018-10-06] MEDS ORDERED: BRETHINE IVP PRN (00:28)
[2018-10-06] MEDS ORDERED: MINERAL OIL PO PRN (00:28)
[2018-10-06] MEDS ORDERED: XYLOCAINE 2% INFILTRATI ONE (00:28)
[2018-10-06] MEDS ORDERED: SUBLIMAZE IV PRN (00:28)
[2018-10-06] MEDS ORDERED: BRETHINE SUB-Q PRN (00:28)
--- NOTE | 2018-10-06 00:28 | History and Physical Report ---
History of Present Illness Date of examination: 10/06/18 Date of admission: 10/06/18 00:20 Chief complaint: labor History of present illness: Pt arrived in active labor C/C/1+ station and delivered shortly after arrival to the room. EDC Confirmation: 10/09/2018 Gestational Age: 19 2/7 weeks Past History : 2 Term Births: 1 Premature Births: 0 Living Children: 1 Para: 1 Mult. Births: 0 Prev : 0 Prev. attempt? none Aborta: 0 Elect. Ab: 0 Spont. 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 SAHM Infection History Hx of STD: none HIV Risk Eval: low risk Hepatitis B Risk Eval: low risk Personal hx. of genital herpes: no Partner hx. of genital herpes: no Rash, Viral, or Febrile illness since last LMP? no Varicella/Chicken Pox Status: Unknown TB Risk: no Genetic History Congenital Heart Defect: Mom: no Dad: no Ramirez Disease: Mom: no Dad: no Thalassemia Mom: no Dad: no Neural Tube Defect Mom: no Dad: no Down's Syndrome Mom: no Dad: no Maury-Sachs Mom: no Dad: no Sickle Cell Disease/Trait Mom: no Dad: no Hemophilia Mom: no Dad: no Muscular Dystrophy Mom: no Dad: no Cystic Fibrosis Mom: no Dad: no [place] Chorea Mom: no Dad: no Mental Retardation Mom: no Dad: no Fragile X Mom: no Dad: no Other Genetic/Chromosomal Disorder Mom: no Dad: no Child w/other defect Mom: no Dad: no Enviromental Exposures Enviromental Exposures Reviewed Xray Exposure: no Medication, drug, or alcohol use since LMP: no Chemical/Other Exposure: no Exposure to Cat Liter: no Hx of Parvovirus (Fifth Disease): no Occupational Exposure to Children: none Active Medications (reviewed today): None Current Allergies (reviewed today): No known allergies Past History Past Medical History: no pertinent history Past Surgical History: no surgical history Social history: no significant social history, single - Obstetrical History Expected Date of Delivery: 10/09/18 Actual Gestation: 39 Week(s) 4 Day(s) : 2 Medications and Allergies Allergies Allergy/AdvReac Type Severity Reaction Status Date / Time No Known Allergies Allergy Verified 10/05/18 07:20 Home Medications Medication Instructions Recorded Confirmed Last Taken Type Vit-Fe Fumar-FA [ 1 tab PO QDAY 05/11/16 10/05/18 08/25/18 History Vitamin] Docusate Sodium [Colace] 100 mg PO BID PRN 08/26/18 10/05/18 08/25/18 History Ferrous Sulfate [Iron 325 MG] 1 tab PO DAILY 08/26/18 10/05/18 08/25/18 History Review of Systems All systems: negative - Physical Exam Cardiovascular: Normal S1, Normal S2 Lungs: Positive: Normal air movement Abdomen: Positive: normal appearance, soft Genitourinary (Female): Positive: normal external genitalia, normal perenium. Negative: perineal/vulvar lesions Anus/Rectum: Positive: normal perianal skin Extremities: Positive: normal. Negative: tenderness, edema - Obstetrical FHR: auscultation normal Cervical Dilatation: 10 Cervical Effacement Percentage: 100 station: 1+ Results All other labs normal. Assessment and Plan - Patient Problems (1) 39 weeks gestation of Current Visit: No Status: Acute (2) Active labor at term Current Visit: No Status: Acute Plan to address problem: -s/p
--- NOTE | 2018-10-06 00:28 | Procedure Note ---
OB Delivery Note - Delivery Date of Delivery: 10/06/18 Surgeon: DB MARR Estimated blood loss: 200cc - Vaginal Delivery presentation: vertex Delivery position: OA Intrapartum events: meconium (very light) Delivery induction: none Delivery monitor: external FHT Route of delivery: Delivery placenta: spontaneous Delivery cord: 3 umbilical vessels Episiotomy: none Delivery laceration: 1st degree (periurethral that were hemostatic and no repair was done) Anesthesia: none Delivery comments: Delivery as above without any complication. Ant shoulder and rest of infant delivered w/o complications. placed on maternal abdomen. Cord clamped x 2 after completion of pulsation was noted and clamped by FOB. Placenta delivered spontaneously intact. Lacerations noted as above and repairs not done due to lacerations being hemostatic. Mother and stable in LDR. - Infant A at 1 minute: 8 at 5 minutes: 8 Gender: Female (6lbs 8oz)
[2018-10-06] MEDS ORDERED: PHENERGAN PR PRN (00:34)
[2018-10-06] MEDS ORDERED: PHENERGAN PO PRN (00:34)
[2018-10-06] MEDS ORDERED: BENADRYL PO PRN (00:34)
[2018-10-06] MEDS ORDERED: TYLENOL PO PRN (00:34)
[2018-10-06] MEDS ORDERED: MILK OF MAGNESIA PO PRN (00:34)
[2018-10-06] MEDS ORDERED: DULCOLAX PR PRN (00:34)
[2018-10-06] MEDS ORDERED: LANSINOH TP PRN (00:34)
[2018-10-06] MEDS ORDERED: ZOFRAN IV PRN (00:34)
[2018-10-06] MEDS ORDERED: TUCKS PAD TP PRN (00:34)
[2018-10-06] MEDS ORDERED: PITOCin/NS 20 UNIT/1000ML DRIP 20 UNITS/1,000 ML BAG IV SCH (01:00)
[2018-10-06] MEDS ORDERED: SODIUM CHLORIDE FLUSH SYRINGE 10 ML IV PRN (01:00)
[2018-10-06] MEDS ORDERED: LACTATED RINGERS 1,000 ML IV SCH (01:00)
[2018-10-06] MEDS ORDERED: PITOCin/NS 30 UNIT/500ML 30 UNITS/500 ML BAG IV SCH (01:00)
[2018-10-06] MEDS ORDERED: METHERGINE IM ONE (01:12)
[2018-10-06] MEDS: IBUPROFEN PO SCH ×4 (01:35→18:25)
[2018-10-06 01:36] LABS: Hematocrit 26.7 % (30.3-42.9); Hemoglobin 8.4 gm/dl (10.1-14.3); Mean Corpuscular HGB Conc 31 % (30-34); Platelet Count 277 K/mm3 (140-440); Red Blood Count 3.85 M/mm3 (3.65-5.03)
[2018-10-06 01:37] LABS: Mean Corpuscular Volume 69 fl (79-97); Red Cell Distribution Width 20.4 % (13.2-15.2)
[2018-10-06 13:06] LABS: Hematocrit 23.4 % (30.3-42.9); Hemoglobin 7.4 gm/dl (10.1-14.3)
[2018-10-06] MEDS: METHERGINE PO SCH ×2 (14:00→22:30)
[2018-10-07] MEDS: IBUPROFEN PO SCH ×3 (00:01→17:25)
[2018-10-07] MEDS: METHERGINE PO SCH ×3 (05:56→17:27)
[2018-10-07] MEDS ORDERED: BOOSTRIX IM ONE (06:00)
--- NOTE | 2018-10-07 12:55 | Discharge Summary ---
Providers - Providers Date of Admission: 10/06/18 00:20 Date of discharge: 10/07/18 Attending physician: DB MARR Primary care physician: DB MARR Hospitalization Reason for admission: active labor Delivery: Laceration: 1st degree Other procedures: none complications: none Discharge diagnosis: IUP at term delivered baby: female Hospital course: Patient presented active labor. uncomplicated. Today, no complaints, minimal bleeding, she desires d/c home active breast feeding baby. Abd soft NT, FF below umb Exts no edema NT Unremarkable, asymptomatic anemia Desires Mirena Will allow home Condition at discharge: Good Disposition: DC-01 TO HOME OR SELFCARE - Discharge Diagnoses (1) ND (normal delivery) Status: Acute (2) Single live Status: Acute Plan - Provider Discharge Summary Activity: routine, no sex for 6 weeks, no heavy lifting 4 weeks, no strenuous exercise Diet: routine Instructions: routine Additional instructions: [] Smoking cessation referral if applicable(refer to patient education folder for contact #) [] Refer to [facility]'s [facility] Booklet Call your doctor immediately for: * Fever > 100.5 * Heavy vaginal bleeding ( >1 pad per hour) * Severe persistent headache * Shortness of breath * Reddened, hot, painful area to leg or breast * Drainage or odor from incision. * Keep incision clean and dry at all times and follow doctor's instructions regarding bathing/showering - Follow up plan Follow up: DB MARR MD [Primary Care Provider] - (4weeks)
[2018-10-07 17:14] VITALS: BP 99/52
== END 2018-10-07 17:00 | disposition home or self-care (01) | DRG 775 ==
LOC: TRG 23:55 → LD 10-06 00:20 → OB 10-06 02:23
PROVIDERS: ADMIT Obstetrics & Gynecology; ATTEND Obstetrics & Gynecology
PROC: 10E0XZZ Delivery of Products of Conception, External Approach (ICD-10-PCS; principal; 2018-10-06)
DX: O77.0 Labor and delivery complicated by meconium in amniotic fluid (principal); O70.0 First degree perineal laceration during delivery; O99.02 Anemia complicating childbirth; D64.9 Anemia, unspecified; Z37.0 Single live birth; Z82.5 Family history of asthma and other chronic lower respiratory diseases; Z79.899 Other long term (current) drug therapy; Z3A.39 39 weeks gestation of pregnancy
CPT/HCPCS: 36415; 59025; 85014; 85018; 85027; 86592; 86706; 86762; 86850; 86900; 86901; 87806; 88307; 96360; 96361; 96365; 96372; G0378; J2210; J2590; J7120

== ENCOUNTER 2021-10-02 14:13 | Inpatient (IN) | payer MEDICAID ==
--- NOTE | 2021-10-02 15:22 | Ultrasound Report ---
Limited OB Ultrasound HISTORY: Full CORNELIO. TECHNIQUE: Grayscale and color imaging performed. COMPARISON: None FINDINGS: Single viable intrauterine gestation with cephalic presentation. CORNELIO is 7.4 cm. Heart rate was 135 bpm during this exam. IMPRESSION: Single viable intrauterine gestation as above. Signer Name: Matias Desai MD Signed: 10/02/2021 3:18 PM Workstation Name: [id number]
[2021-10-02] MEDS ORDERED: MINERAL OIL 30 ML ORAL LIQD PO PRN (17:38)
[2021-10-02] MEDS ORDERED: TERBUTALINE 1 MG/1 ML INJ SUB-Q PRN (17:38)
[2021-10-02] MEDS ORDERED: ACETAMINOPHEN 325 MG TAB PO PRN (17:38)
[2021-10-02] MEDS ORDERED: LIDOCAINE (2%) 20 MG/1 ML VIAL 20 ML MDV INFILTRATI ONE (17:38)
[2021-10-02] MEDS ORDERED: OXYTOCIN 10 UNIT/1 ML INJ IM PRN (17:38)
[2021-10-02] MEDS ORDERED: BUTORPHANOL 2 MG/1 ML INJ IV PRN (17:38)
[2021-10-02] MEDS ORDERED: NALOXONE 0.4 MG/1 ML INJ IV PRN (17:38)
[2021-10-02] MEDS ORDERED: miSOPROStol 200 MCG TAB PR PRN (17:38)
[2021-10-02] MEDS ORDERED: ePHEDrine SULFATE 50 MG/1 ML INJ IV PRN (17:38)
[2021-10-02] MEDS ORDERED: METHYLERGONOVINE MALEATE 0.2 MG/ML VIAL IM PRN (17:38)
[2021-10-02] MEDS ORDERED: LOPERAMIDE 2 MG CAP PO PRN (17:38)
[2021-10-02] MEDS ORDERED: fentaNYL 100 MCG/2 ML INJ IV PRN (17:38)
[2021-10-02] MEDS ORDERED: PROMETHAZINE 25 MG TAB PO PRN ×2 (17:38→23:35)
[2021-10-02] MEDS ORDERED: CARBOPROST TROMETHAMINE 250 MCG/1 ML INJ IM PRN (17:38)
[2021-10-02] MEDS ORDERED: ONDANSETRON 4 MG/2 ML INJ IV PRN ×2 (17:38→23:35)
--- NOTE | 2021-10-02 17:38 | History and Physical Report ---
History of Present Illness Date of examination: 10/02/21 Date of admission: 10/02/2021 Chief complaint: My water broke early this AM at midnight. History of present illness: Pt is a @ 39.2 wks who presented to triage with c/o her water broke at ~ midnight today. This has been uncomplicated. EDC Confirmation: 10/07/2021 Gestational Age: 39.2 weeks Past History : 3 Term Births: 2 Premature Births: 0 Living Children: 2 Para: 2 Mult. Births: 0 Prev : 0 Prev. attempt? none Aborta: 0 Elect. Ab: 0 Spont. Ab: 0 Ectopics: 0 # 1 Delivery date: 05/10/2016 Weeks Gestation: 40 labor: no Delivery type: Anesthesia type: epidural Delivery location: [facility] Infant Sex: Female weight: 7#8 # 2 Delivery date: 10/06/2018 Weeks Gestation: 39.4 Delivery type: Vaginal Anesthesia type: epidural Delivery location: [facility] Sex: female weight: 6.50 Comments: none Past Medical History: Reviewed history from 05/17/2018 and no changes required: Negative Past Medical History Past Surgical History: Reviewed history from 04/26/2019 and no changes required: wisdom teeth extraction 2011, anesthesia, no complications right elbow surgery at 3 yr old Risk Factors: Smoked Tobacco Use: Never smoker Smokeless Tobacco Use: Never Passive Smoke Exposure: no HIV High Risk Behavior: no Exercise: no Seatbelt Use: 100 % Past Medical History 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 SAHM Infection History HIV Risk Eval: no Genetic History Congenital Heart Defect: Mom: no Dad: no Ramirez Disease: Mom: no Dad: no Thalassemia Mom: no Dad: no Neural Tube Defect Mom: no Dad: no Down's Syndrome Mom: no Dad: no Muary-Sachs Mom: no Dad: no Sickle Cell Disease/Trait Mom: no Dad: no Hemophilia Mom: no Dad: no Muscular Dystrophy Mom: no Dad: no Cystic Fibrosis Mom: no Dad: no Bradley Chorea Mom: no Dad: no Mental Retardation Mom: no Dad: no Fragile X Mom: no Dad: no Other Genetic/Chromosomal Disorder Mom: no Dad: no Child w/other defect Mom: no Dad: no Environmental Exposures Xray Exposure: no Medication, drug, or alcohol use since LMP: no Chemical/Other Exposure: no Exposure to Cat Liter: no Hx of Parvovirus (Fifth Disease): no Occupational Exposure to Children: none Current Allergies: No known allergies Past History Past Medical History: no pertinent history Past Surgical History: other ([place] tooth removed, right elbow surgery @ 3 yr old) Social history: no significant social history - Obstetrical History Expected Date of Delivery: 10/07/21 Actual Gestation: 39 Week(s) 2 Day(s) : 3 Para: 2 Hx # Term Pregnancies: 2 Number of Pregnancies: 0 Spontaneous Abortions: 0 Induced : 0 Number of Living Children: 2 Medications and Allergies Allergies Allergy/AdvReac Type Severity Reaction Status Date / Time No Known Allergies Allergy Verified 10/05/18 07:20 Home Medications Medication Instructions Recorded Confirmed Last Taken Type Vit-Fe Fumar-FA [ 1 tab PO QDAY 05/11/16 10/05/18 08/25/18 History Vitamin] Docusate Sodium [Colace] 100 mg PO BID PRN 08/26/18 10/05/18 08/25/18 History Ferrous Sulfate [Iron 325 MG] 1 tab PO DAILY 08/26/18 10/05/18 08/25/18 History Docusate Sodium [Colace] 100 mg PO BID PRN #30 capsule 10/07/18 Unknown Rx Ferrous Sulfate [Feosol 325 MG tab] 325 mg PO BID #90 tablet 10/07/18 Unknown Rx Review of Systems All systems: negative - Vital Signs Vital signs: Vital Signs Pulse Pulse Ox 105 H 99 10/02/21 14:39 10/02/21 14:39 Temp Pulse Resp BP Pulse Ox 99.0 F 95 H 16 111/72 99 10/02/21 14:41 10/02/21 16:59 10/02/21 14:41 10/02/21 14:41 10/02/21 16:59 - Physical Exam Breasts: Positive: deferred Cardiovascular: Regular rate Lungs: Positive: Normal air movement Abdomen: Positive: normal appearance, soft Genitourinary (Female): Positive: normal external genitalia, normal perenium Vulva: both: normal Vagina: Positive: other (Speculum exam: A moderate amount of clear fluid seen at the cervical os. ) Uterus: Positive: enlarged (Normal size for 39 + wk gestation. ) Extremities: Positive: normal - Obstetrical Uterine Contraction Monitor Mode: External Cervical Dilatation: 1.5 Cervical Effacement Percentage: 50 station: -2 Uterine Contraction Pattern: Irregular Uterine Tone Measurement Phase: Resting Uterine Contraction Intensity: Mild Results Result Diagrams: 10/02/21 18:10 All other labs normal. GBS NEGATIVE HBsAg Screen Negative Negative *1 RPR Non Reactive Non Reactive *2 Rubella Antibodies, IgG 1.33 index Immune >0.99 *3 Non-immune <0.90 Equivocal 0.90 - 0.99 Immune >0.99 ABO Grouping B *4 Rh Factor Positive *5 Please note: Prior records for this patient's ABO / Rh type are not available for additional verification. Antibody Screen Negative Negative *6 Tests: (2) HB Solu + Rflx Frac (842039) Hemoglobin (Hgb) Solubility Negative Negative *31 Tests: (3) HIV Ag/Ab with Reflex ([id number]) HIV Screen 4th Generation wRfx Non Reactive Non Reactive *32 Tests: (4) HCV Antibody reflex to SAMUEL ([id number]) HCV Ab 0.3 s/co ratio 0.0-0.9 *33 Tests: (5) Interpretation: ([id number]) ! Interpretation: SPRCS *34 Negative Not infected with HCV, unless recent infection is suspected or other evidence exists to indicate HCV infection. Assessment and Plan A: 26 y.o. @ 39.2 wks, SROM @ ~ midnight, clear fluid. Anemia in . - Patient Problems (1) Delayed delivery after SROM (spontaneous rupture of membranes) Current Visit: Yes Status: Acute Plan to address problem: Monitor maternal temperature in labor. (2) Anemia Onset Date: Unknown Current Visit: No Status: Chronic Qualifiers: Anemia type: iron deficiency Iron deficiency anemia type: unspecified iron deficiency Qualified Code(s): D50.9 - Iron deficiency anemia, unspecified Plan to address problem: Uterotonics in room during delivery should hemorrhage occur. Monitor for bleeding during and after labor. Ferrous sulfate q daily ordered. (3) 39 weeks gestation of Current Visit: No Status: Acute Plan to address problem: Admit to labor and delivery. Initiate IV. Draw admission labs. Initiate Pitocin per protocol. Monitor status through EFM. Anticipate .
[2021-10-02] MEDS ORDERED: LACTATED RINGERS 1,000 ML IV SCH (17:45)
[2021-10-02] MEDS ORDERED: OXYTOCIN DRIP 30 UNITS/500 ML BAG IV SCH ×3 (18:00→23:45)
[2021-10-02 19:52] LABS: Hematocrit 26.5 % (30.3-42.9); Hemoglobin 8.4 gm/dl (10.1-14.3); Mean Corpuscular HGB Conc 32 % (30-34); Mean Corpuscular Volume 74 fl (79-97); Platelet Count 249 K/mm3 (140-440); Red Blood Count 3.59 M/mm3 (3.65-5.03); Red Cell Distribution Width 17.5 % (13.2-15.2)
--- NOTE | 2021-10-02 20:01 | Event Note ---
Date: 10/02/21 Pt with increase bloody show and LOF. Explained that LOF will continue until after she has the baby. Cervical exam: 3.5/-2. Will start Pitocin per protocol. Anticipate .
--- NOTE | 2021-10-02 22:44 | Progress Note ---
Assessment and Plan A: 26 y.o. @ 39.2 wks, active labor @ 8cm. - Patient Problems (1) Delayed delivery after SROM (spontaneous rupture of membranes) Current Visit: Yes Status: Acute Plan to address problem: Anticipate . (2) Anemia Onset Date: Unknown Current Visit: No Status: Chronic Qualifiers: Anemia type: iron deficiency Iron deficiency anemia type: unspecified iron deficiency Qualified Code(s): D50.9 - Iron deficiency anemia, unspecified (3) 39 weeks gestation of Current Visit: No Status: Acute Subjective - Subjective Date of service: 10/02/21 Principal diagnosis: IUP @ term, active labor Interval history: Pt feeling the urge to push. Patient reports: loss of fluid Objective - Vital Signs Vital Signs: Vital Signs - 12hr 10/02/21 10/02/21 10/02/21 14:39 14:40 14:41 Temperature 99.0 F Pulse Rate 105 H 101 H 103 H Respiratory 16 Rate Blood Pressure 111/72 Blood Pressure 111/72 [Right] O2 Sat by Pulse 99 99 Oximetry O2 Sat by Pulse Oximetry [ Anterior Bilateral Throughout] 10/02/21 10/02/21 10/02/21 14:44 14:49 14:54 Temperature Pulse Rate 101 H 104 H 101 H Respiratory Rate Blood Pressure Blood Pressure [Right] O2 Sat by Pulse 99 98 100 Oximetry O2 Sat by Pulse Oximetry [ Anterior Bilateral Throughout] 10/02/21 10/02/21 10/02/21 14:59 15:04 15:09 Temperature Pulse Rate 106 H 107 H 109 H Respiratory Rate Blood Pressure Blood Pressure [Right] O2 Sat by Pulse 99 99 99 Oximetry O2 Sat by Pulse Oximetry [ Anterior Bilateral Throughout] 10/02/21 10/02/21 10/02/21 15:14 15:19 15:24 Temperature Pulse Rate 98 H 91 H 92 H Respiratory Rate Blood Pressure Blood Pressure [Right] O2 Sat by Pulse 99 98 100 Oximetry O2 Sat by Pulse Oximetry [ Anterior Bilateral Throughout] 10/02/21 10/02/21 10/02/21 15:29 15:34 15:39 Temperature Pulse Rate 98 H 99 H 103 H Respiratory Rate Blood Pressure Blood Pressure [Right] O2 Sat by Pulse 99 99 98 Oximetry O2 Sat by Pulse Oximetry [ Anterior Bilateral Throughout] 10/02/21 10/02/21 10/02/21 15:44 15:49 15:54 Temperature Pulse Rate 103 H 94 H 98 H Respiratory Rate Blood Pressure Blood Pressure [Right] O2 Sat by Pulse 99 99 99 Oximetry O2 Sat by Pulse Oximetry [ Anterior Bilateral Throughout] 10/02/21 10/02/21 10/02/21 15:59 16:04 16:09 Temperature Pulse Rate 95 H 99 H 94 H Respiratory Rate Blood Pressure Blood Pressure [Right] O2 Sat by Pulse 99 99 99 Oximetry O2 Sat by Pulse Oximetry [ Anterior Bilateral Throughout] 10/02/21 10/02/21 10/02/21 16:14 16:19 16:24 Temperature Pulse Rate 92 H 101 H 96 H Respiratory Rate Blood Pressure Blood Pressure [Right] O2 Sat by Pulse 100 100 100 Oximetry O2 Sat by Pulse Oximetry [ Anterior Bilateral Throughout] 10/02/21 10/02/21 10/02/21 16:29 16:34 16:39 Temperature Pulse Rate 106 H 98 H 90 Respiratory Rate Blood Pressure Blood Pressure [Right] O2 Sat by Pulse 99 100 100 Oximetry O2 Sat by Pulse Oximetry [ Anterior Bilateral Throughout] 10/02/21 10/02/21 10/02/21 16:44 16:49 16:54 Temperature Pulse Rate 98 H 96 H 94 H Respiratory Rate Blood Pressure Blood Pressure [Right] O2 Sat by Pulse 99 100 100 Oximetry O2 Sat by Pulse Oximetry [ Anterior Bilateral Throughout] 10/02/21 10/02/21 10/02/21 16:59 19:46 19:47 Temperature 98.8 F Pulse Rate 95 H 96 H Respiratory 18 Rate Blood Pressure Blood Pressure 109/73 [Right] O2 Sat by Pulse 99 99 Oximetry O2 Sat by Pulse 99 Oximetry [ Anterior Bilateral Throughout] 10/02/21 10/02/21 10/02/21 20:00 20:05 20:10 Temperature Pulse Rate 93 H 89 97 H Respiratory Rate Blood Pressure Blood Pressure [Right] O2 Sat by Pulse 100 100 100 Oximetry O2 Sat by Pulse Oximetry [ Anterior Bilateral Throughout] 10/02/21 10/02/21 10/02/21 20:15 20:20 20:25 Temperature Pulse Rate 86 93 H 89 Respiratory Rate Blood Pressure 104/67 Blood Pressure [Right] O2 Sat by Pulse 100 100 100 Oximetry O2 Sat by Pulse Oximetry [ Anterior Bilateral Throughout] 10/02/21 10/02/21 10/02/21 20:30 20:35 20:40 Temperature Pulse Rate 97 H 101 H 117 H Respiratory Rate Blood Pressure Blood Pressure [Right] O2 Sat by Pulse 100 100 100 Oximetry O2 Sat by Pulse Oximetry [ Anterior Bilateral Throughout] 10/02/21 10/02/21 10/02/21 20:45 20:50 20:56 Temperature Pulse Rate 94 H 82 57 L Respiratory Rate Blood Pressure Blood Pressure [Right] O2 Sat by Pulse 99 100 96 Oximetry O2 Sat by Pulse Oximetry [ Anterior Bilateral Throughout] 10/02/21 10/02/21 10/02/21 20:57 21:01 21:06 Temperature Pulse Rate 86 95 H 90 Respiratory Rate Blood Pressure 102/70 Blood Pressure [Right] O2 Sat by Pulse 100 99 Oximetry O2 Sat by Pulse Oximetry [ Anterior Bilateral Throughout] 10/02/21 10/02/21 10/02/21 21:11 21:16 21:20 Temperature Pulse Rate 98 H 92 H Respiratory 18 Rate Blood Pressure Blood Pressure [Right] O2 Sat by Pulse 100 100 Oximetry O2 Sat by Pulse Oximetry [ Anterior Bilateral Throughout] 10/02/21 10/02/21 10/02/21 21:21 21:26 21:31 Temperature Pulse Rate 95 H 98 H 80 Respiratory Rate Blood Pressure Blood Pressure [Right] O2 Sat by Pulse 100 100 98 Oximetry O2 Sat by Pulse Oximetry [ Anterior Bilateral Throughout] 10/02/21 10/02/21 10/02/21 21:36 21:41 21:46 Temperature Pulse Rate 90 81 104 H Respiratory Rate Blood Pressure Blood Pressure [Right] O2 Sat by Pulse 99 99 100 Oximetry O2 Sat by Pulse Oximetry [ Anterior Bilateral Throughout] 10/02/21 10/02/21 10/02/21 21:51 21:55 21:56 Temperature Pulse Rate 94 H 77 87 Respiratory Rate Blood Pressure 119/77 Blood Pressure [Right] O2 Sat by Pulse 100 100 Oximetry O2 Sat by Pulse Oximetry [ Anterior Bilateral Throughout] 10/02/21 10/02/21 10/02/21 22:01 22:06 22:20 Temperature Pulse Rate 93 H 88 102 H Respiratory Rate Blood Pressure Blood Pressure [Right] O2 Sat by Pulse 100 100 99 Oximetry O2 Sat by Pulse Oximetry [ Anterior Bilateral Throughout] 10/02/21 10/02/21 10/02/21 22:24 22:25 22:30 Temperature Pulse Rate 85 93 H 99 H Respiratory Rate Blood Pressure 119/77 Blood Pressure [Right] O2 Sat by Pulse 100 100 Oximetry O2 Sat by Pulse Oximetry [ Anterior Bilateral Throughout] 10/02/21 10/02/21 22:35 22:40 Temperature Pulse Rate 104 H 119 H Respiratory Rate Blood Pressure Blood Pressure [Right] O2 Sat by Pulse 100 100 Oximetry O2 Sat by Pulse Oximetry [ Anterior Bilateral Throughout] - Exam Cervical Dilatation: 8.5 Cervical Effacement Percentage: 100 station: 0 - Labs Labs: Abnormal Labs 10/02/21 18:10 RBC 3.59 L Hgb 8.4 L Hct 26.5 L MCV 74 L MCH 23 L RDW 17.5 H Laboratory Results - last 24 hr 10/02/21 10/02/21 10/02/21 18:10 18:10 18:10 WBC 10.3 RBC 3.59 L Hgb 8.4 L Hct 26.5 L MCV 74 L MCH 23 L MCHC 32 RDW 17.5 H Plt Count 249 Syphilis IgG/IgM Ab Nonreactive Blood Type B POSITIVE Antibody Screen Negative
--- NOTE | 2021-10-02 23:02 | Procedure Note ---
OB Delivery Note - Delivery Date of Delivery: 10/02/21 Medical Assistant Float: BAYLEE BYRNE Estimated blood loss: 100cc - Vaginal Delivery presentation: vertex Delivery position: OA Intrapartum events: none Delivery induction: none Delivery augmentation: pitocin Delivery monitor: external FHT, external uterine Route of delivery: Delivery cord: 3 umbilical vessels Episiotomy: none Delivery laceration: none Anesthesia: intravenous Delivery comments: of viable male infant. to mother's abdomen for skin to skin. Cord clamped after cessation of pulse. Cut by FOC. Spontaneous delivery of placenta, intact, complete, 3 vessels noted. Perineum and vagina inspected, intact, no lacerations noted. Fundus firm, minimal bleeding noted. Sponges and instruments counted and correct. Mother and left in stable condition in care of RN. - Infant A at 1 minute: 8 at 5 minutes: 9 Infant Gender: Male (Baby [place], 6-5)
[2021-10-02] MEDS ORDERED: miSOPROStol 100 MCG TAB PR PRN (23:35)
[2021-10-02] MEDS ORDERED: BENZOCAINE/MENTHOL 20/0.5% TOP SPRAY 56 GM TP PRN (23:35)
[2021-10-02] MEDS ORDERED: diphenhydrAMINE 25 MG CAP PO PRN (23:35)
[2021-10-02] MEDS ORDERED: MAGNESIUM HYDROXIDE (MOM) ORAL LIQD UDC PO PRN (23:35)
[2021-10-02] MEDS ORDERED: LANOLIN/ZINC/DIMETHICONE (LANSINOH) 7 GM TP PRN ×2 (23:35)
[2021-10-02] MEDS ORDERED: oxyCODONE /ACETAMINOPHEN 5-325MG TAB PO PRN (23:35)
[2021-10-02] MEDS ORDERED: WITCH HAZEL/ GLYCERIN PAD TP PRN (23:35)
[2021-10-02] MEDS ORDERED: PROMETHAZINE 25 MG RECT SUPP PR PRN (23:35)
[2021-10-03] MEDS ORDERED: ACETAMINOPHEN 500 MG TAB PO PRN (00:01)
[2021-10-03] MEDS: IBUPROFEN 800 MG TAB PO SCH ×4 (00:20→18:33)
[2021-10-03] MEDS: SENNOSIDES/DOCUSATE SODIUM 8.6/50 MG TAB PO SCH ×3 (00:21→21:43)
--- NOTE | 2021-10-03 08:32 | Progress Note ---
Assessment and Plan A: 26 y.o. s/p , anemia. - Patient Problems (1) Anemia Onset Date: Unknown Current Visit: No Status: Chronic Qualifiers: Anemia type: iron deficiency Iron deficiency anemia type: unspecified iron deficiency Qualified Code(s): D50.9 - Iron deficiency anemia, unspecified Plan to address problem: Iron supplementation ordered. Continue to monitor vaginal bleeding. (2) (normal spontaneous vaginal delivery) Current Visit: Yes Status: Acute Plan to address problem: Continue with care. Anticipate discharge home on 10/04 if patient remains stable. Subjective - Subjective Date of service: 10/03/21 Principal diagnosis: , ~ 8 hours Patient reports: appetite normal, voiding normally, pain well controlled, ambulating normally [place]: doing well Objective - Vital Signs Latest vital signs: Vital Signs Temp Pulse Resp BP BP Pulse Ox Pulse Ox 10/03/21 08:07 98.1 F 85 18 107/74 100 10/03/21 05:13 97.6 F 88 18 118/78 100 10/03/21 01:00 100 10/03/21 00:30 97 H 97 10/03/21 00:26 98.4 F 18 100 10/03/21 00:25 87 99 10/03/21 00:24 90 108/65 10/03/21 00:20 84 100 10/03/21 00:15 90 100 10/03/21 00:10 90 100 10/03/21 00:05 84 100 10/03/21 00:00 83 100 10/02/21 23:56 79 135/81 10/02/21 23:55 83 100 10/02/21 23:40 88 99 10/02/21 23:35 93 H 100 10/02/21 23:30 91 H 99 10/02/21 23:25 92 H 100 10/02/21 23:24 100 H 125/81 10/02/21 23:20 98 H 100 10/02/21 23:15 95 H 100 10/02/21 23:10 89 100 10/02/21 23:05 100 H 100 10/02/21 23:00 93 H 99 10/02/21 22:55 102 H 100 10/02/21 22:50 98 H 100 10/02/21 22:48 137 H 93 10/02/21 22:45 128 H 100 10/02/21 22:40 119 H 100 10/02/21 22:35 104 H 100 10/02/21 22:30 99 H 100 10/02/21 22:25 93 H 100 10/02/21 22:24 85 119/77 06 22:20 102 H 99 10/02/21 22:06 88 100 10/02/21 22:01 93 H 100 10/02/21 21:56 87 100 10/02/21 21:55 77 119/77 10/02/21 21:51 94 H 100 10/02/21 21:46 104 H 100 10/02/21 21:41 81 99 10/02/21 21:36 90 99 10/02/21 21:31 80 98 10/02/21 21:26 98 H 100 10/02/21 21:21 95 H 100 10/02/21 21:20 18 10/02/21 21:16 92 H 100 10/02/21 21:11 98 H 100 10/02/21 21:06 90 99 10/02/21 21:01 95 H 100 10/02/21 20:57 86 102/70 10/02/21 20:56 57 L 96 10/02/21 20:50 82 100 10/02/21 20:45 94 H 99 10/02/21 20:40 117 H 100 10/02/21 20:35 101 H 100 10/02/21 20:30 97 H 100 10/02/21 20:25 89 104/67 100 10/02/21 20:20 93 H 100 10/02/21 20:15 86 100 10/02/21 20:10 97 H 100 10/02/21 20:05 89 100 10/02/21 20:00 93 H 100 10/02/21 19:47 99 10/02/21 19:46 98.8 F 96 H 18 109/73 99 10/02/21 16:59 95 H 99 10/02/21 16:54 94 H 100 10/02/21 16:49 96 H 100 10/02/21 16:44 98 H 99 10/02/21 16:39 90 100 10/02/21 16:34 98 H 100 10/02/21 16:29 106 H 99 10/02/21 16:24 96 H 100 10/02/21 16:19 101 H 100 06/04/22 16:14 92 H 100 10/02/21 16:09 94 H 99 10/02/21 16:04 99 H 99 10/02/21 15:59 95 H 99 10/02/21 15:54 98 H 99 10/02/21 15:49 94 H 99 10/02/21 15:44 103 H 99 10/02/21 15:39 103 H 98 10/02/21 15:34 99 H 99 10/02/21 15:29 98 H 99 10/02/21 15:24 92 H 100 10/02/21 15:19 91 H 98 10/02/21 15:14 98 H 99 10/02/21 15:09 109 H 99 10/02/21 15:04 107 H 99 10/02/21 14:59 106 H 99 10/02/21 14:54 101 H 100 10/02/21 14:49 104 H 98 10/02/21 14:44 101 H 99 10/02/21 14:41 99.0 F 103 H 16 111/72 99 10/02/21 14:40 101 H 111/72 10/02/21 14:39 105 H 99 Intake and Output 10/02/21 10/03/21 10/03/21 22:59 06:59 14:59 Intake Total 7.800 720 Output Total 2200 Balance 7.800 -1480 Intake: IV 7.800 PITOCin/NS 30 UNIT/500ML 7.800 30 units In 500 ml @ 4 mls/hr IV TITR JOYCE Rx#: [id number] Intake, Free Water 720 Output: Urine 2200 Void 2200 Other: Total, Output Amount 800 # Voids Void 1 Estimated Blood Loss 100 - Exam Cardiovascular: Present: Regular rate Lungs: Present: Normal air movement Abdomen: Present: normal appearance, soft Vulva: both: normal Uterus: Present: normal, firm, other (Minimal vaginal bleeding noted. ) Extremities: Present: normal - Labs Labs: Abnormal lab results 10/02/21 Range/Units 18:10 RBC 3.59 L (3.65-5.03) M/mm3 Hgb 8.4 L (10.1-14.3) gm/dl Hct 26.5 L (30.3-42.9) % MCV 74 L (79-97) fl MCH 23 L (28-32) pg RDW 17.5 H (13.2-15.2) %
[2021-10-03] MEDS: FERROUS SULFATE 325 MG TAB PO SCH (09:47)
[2021-10-03] MEDS: PRENATAL VIT27-FE FUMARATE-FOLIC ACID VIT TAB PO SCH (09:47)
[2021-10-03] MEDS: DOCUSATE SODIUM 100 MG CAP PO SCH ×2 (09:47→21:43)
[2021-10-03 11:37] LABS: Hematocrit 25.1 % (30.3-42.9); Hemoglobin 7.9 gm/dl (10.1-14.3)
[2021-10-04] MEDS: IBUPROFEN 800 MG TAB PO SCH ×2 (00:55→06:18)
[2021-10-04] MEDS ORDERED: TETANUS,DIPH,PERTUSS(ACELL) VACCINE 0.5 ML SYRINGE IM ONE (06:00)
--- NOTE | 2021-10-04 09:54 | Discharge Summary ---
Providers - Providers Date of Admission: 10/02/21 17:39 Date of discharge: 10/04/21 (pt desires discharge home) Attending physician: STONEY BENITEZ 10/03/21 01:15 Consult to Knife Edger [CONS] Routine Reason For Exam: Primary care physician: STONEY BENITEZ Hospitalization Reason for admission: active labor, rupture of membranes, IUP at term Delivery: Episiotomy: none Laceration: none Other procedures: none complications: none Discharge diagnosis: IUP at term delivered baby: male Condition at discharge: Good Disposition: 01 HOME / SELF CARE / HOMELESS - Discharge Diagnoses (1) (normal spontaneous vaginal delivery) Status: Acute Comment: Pt denies all complaints. Reports ambulating, voiding, and eating without difficulty. Pt reports desires to discharge home today. Discharge precautions d/w pt. Dr. Ibanez made aware. Plan - Discharge Medications Prescriptions: Docusate Sodium [Colace] 100 mg PO BID PRN #60 capsule PRN Reason: Pain, Moderate (4-6) Lidocain2.5%/Prilocai2.5% [Emla] 1 applic TP ONCE #1 tube Ferrous Sulfate [Feosol 325 MG tab] 325 mg PO QDAY #30 tablet Ibuprofen [Motrin] 800 mg PO Q8HR PRN #20 tablet PRN Reason: Pain, Moderate (4-6) - Provider Discharge Summary Activity: routine, no sex for 6 weeks, no heavy lifting 4 weeks, no strenuous exercise Diet: routine Instructions: routine Additional instructions: [] Smoking cessation referral if applicable(refer to patient education folder for contact #) [] Refer to [facility] Booklet Call your doctor immediately for: * Fever > 100.5 * Heavy vaginal bleeding ( >1 pad per hour) * Severe persistent headache * Shortness of breath * Reddened, hot, painful area to leg or breast * Congratulations! Please call [phone] and schedule a visit in 4 weeks. Please also call to schedule your elective circumcision. Please bring your prescription with you to the appointment. Do not apply the cream prior to the procedure. Thank you! - Follow up plan Follow up: STONEY BENITEZ MD [Primary Care Provider] - 7 Days
[2021-10-04] MEDS: FERROUS SULFATE 325 MG TAB PO SCH (11:04)
[2021-10-04] MEDS: DOCUSATE SODIUM 100 MG CAP PO SCH (11:04)
[2021-10-04] MEDS: PRENATAL VIT27-FE FUMARATE-FOLIC ACID VIT TAB PO SCH (11:05)
[2021-10-04 11:28] VITALS: BP 121/81
== END 2021-10-04 12:30 | disposition home or self-care (01) | DRG 775 ==
LOC: TRG 14:13 → APU 14:15 → TRG 18:51 → LD 19:56 → OB 10-03 00:41
PROVIDERS: ADMIT Obstetrics & Gynecology; ATTEND Obstetrics & Gynecology
PROC: 10E0XZZ Delivery of Products of Conception, External Approach (ICD-10-PCS; principal; 2021-10-02)
PROC: 3E0234Z Introduction of Serum, Toxoid and Vaccine into Muscle, Percutaneous Approach (ICD-10-PCS; 2021-10-04)
DX: O99.02 Anemia complicating childbirth (principal); Z20.822 Contact with and (suspected) exposure to COVID-19; D50.9 Iron deficiency anemia, unspecified; Z3A.39 39 weeks gestation of pregnancy; Z37.0 Single live birth; Z23 Encounter for immunization
CPT/HCPCS: 36415; 76815; 85014; 85018; 85027; 86592; 86850; 86900; 86901; G0378; J2590; J3010; J7120; U0003